=== PATIENT | female | born 1975 | race Caucasian/White ===

== ENCOUNTER 2025-04-06 19:19 | Emergency (ER) | payer BC, SELFPAY ==
[2025-04-06 19:25] VITALS: BP 131/82
[2025-04-06 20:34] VITALS: BP 137/86
[2025-04-06 20:37] VITALS: BMI 23.6
[2025-04-06 21:00] VITALS: BP 121/91
[2025-04-06 22:00] VITALS: BP 109/81
--- NOTE | 2025-04-06 22:11 | ED.GENMED ---
History of Present Illness
General
Chief Complaint: Head Injury
Time Seen by Provider: 04/06/25 21:31
History of Present Illness
History of Present Illness:
FOCUSED PAST MEDICAL HISTORY
- Has had lumpectomies
REVIEW OF OLD RECORDS
- The patient was seen in the Emergency Department 2012 related to vaginal bleeding
Note:
CHIEF COMPLAINT(S)
Head injury with headache following a fall.
HISTORY OF PRESENT ILLNESS
The patient is a 49-year-old female who presented following a fall at approximately 10:00 AM after tripping over her pants and hitting her head on the side against a desk chair. Initially, she reported feeling well but later developed headaches. The
headaches are not constant and tend to come and go, occurring primarily when talking. The patient suspects this may be due to trauma to the yarsani area. There is no persistent headache, neck pain, cut, or abrasion reported. She denies sensation of
being in a fog or feeling off and reports feeling otherwise normal. The patient is alert and interacted appropriately during the encounter.
EXTERNAL RECORDS REVIEWED
The computed tomography (CT) scan conducted in the emergency department showed no signs of brain bleeding. The attending physician reviewed the scan and noted no acute intracranial pathology, pending official reading from the radiologist.
PHYSICAL EXAM
General: Alert, no acute distress.
Skin: Warm, dry. No lacerations or cuts noted.
Head: Normocephalic, atraumatic. Minimal tenderness noted at the yarsani area with no visible external injury. No laceration
Neck: Supple, no tenderness reported. No midline C-spine tenderness
Eye, Ears, Nose, Mouth and Throat: Normal. Oral mucosa moist.
Cardiovascular: Normal peripheral perfusion, no edema.
Respiratory: Respirations are non-labored.
Gastrointestinal: Abdomen nondistended.
Back: Normal range of motion, normal alignment.
Musculoskeletal: Normal range of motion, normal strength.
Neurological: Alert and oriented to person, place, time, and situation. No focal neurological deficit observed.
Psychiatric: Cooperative, appropriate mood and affect.
PLAN
- Await the official report from the radiologist on the CT scan to confirm no acute issues.
- Provided reassurance that there is no sign of catastrophic injuries based on the preliminary CT scan review.
- Advised that once the official reading confirms normal results, the patient can safely rest.
DIFFERENTIAL DIAGNOSIS
The Differential Diagnosis includes, in no particular order and is not limited to:
1. Concussion
2. Minor head injury
3. Cervicogenic headache
4. Tension-type headache
5. Subdural hematoma (ruled out with CT scan)
6. Subarachnoid hemorrhage (ruled out with CT scan)
7. Post-traumatic headache
8. Migraine
9. Sinusitis
10. Vestibular dysfunction
Disposition:
SUMMARY OF ENCOUNTER
The patient, a 49-year-old female, presented to the emergency department following a fall, experiencing headache after hitting her head against a desk chair. A CT scan of the head was performed, which came back negative for any intracranial bleeding
or acute abnormalities. The scan incidentally revealed a small, benign nodule on the thyroid gland. There was no indication for neck imaging at this time and no emergent treatment was required for the nodule. The patient reported no severe or
unusual symptoms beyond the initial headache.
DISPOSITION
Discharge.
ASSESSMENT
Minor head injury with headache post-fall. Incidental finding of a benign thyroid nodule on CT scan.
PLAN
The plan is to discharge the patient with reassurance about the negative CT findings for the head injury. Instructions were given to follow up with her primary care provider regarding the thyroid nodule for possible further evaluation, such as an
ultrasound, if deemed necessary. Patient advised that the thyroid nodule is not an acute concern and should be managed as an outpatient.
INDEPENDENT REVIEW OF LABS AND INTERPRETATION OF TESTS
- My independent interpretation of the CT scan is negative for acute intracranial pathology, with an incidental benign-appearing thyroid nodule.
PATIENT EDUCATION AND COUNSELING
The patient was informed that the CT scan was negative for acute injuries such as brain bleeding and that there is no immediate concern regarding the benign thyroid nodule. Patient was reassured about the safety of discharged and advised that the
headache is not indicative of any life-threatening condition at this point.
FOLLOW-UP INSTRUCTIONS
Patient advised to follow-up with her primary care provider regarding the management of the thyroid nodule. Further imaging or evaluation to be considered based on primary care providers assessment.
MEDICAL DECISION MAKING
- Number and Complexity of Problems Addressed: Differential diagnosis considered includes concussion, minor head injury, post-traumatic headache, tension-type headache. Thyroid nodule detected as benign and incidental finding.
- Data:
*Category 1: External record reviewed, CT scan of head reviewed.
*Category 2: Independent interpretation indicated negative findings for acute pathology and incidental benign thyroid nodule.
- Risk: Consideration of Admission/Observation: Escalation of care including admission/observation was considered given the complexity and risk of the patients presenting complaint, but work-up was reassuring, symptoms were well controlled, and the
patient is reliable for follow-up.
DIAGNOSIS
1. Minor head injury (S09.90XA)
RADIOLOGY
- CAT scan of the brain shows no bleeding
Past History
Past History
ED Past Medical History: None
ED Past Surgical History: None
Social History
Personal:
Phy Exam
Physical Exam
Physical Exam:
See HPI
Course
Orders/Labs/Results
Orders:
Orders
04/06/25 19:28
CT Head W/o Iv Contrast Urgent
Comment:
Reason For Exam: Head strike, +syncope
04/06/25 20:31
Cervical Spine wo Contrast CT [CT Cervical Spine W/o Iv Contr] Urgent
Comment:
Reason For Exam: fall
Vital Signs
Initial and Last Documented VS:
Initial Vital Signs
Temp Pulse Resp BP Pulse Ox
36.7 C 81 18 131/82 100
04/06/25 19:25 04/06/25 19:25 04/06/25 19:25 04/06/25 19:25 04/06/25 19:25
Last Documented Vital Signs
Temp Pulse Resp BP Pulse Ox
36.7 C 81 18 121/91 100
04/06/25 19:25 04/06/25 21:15 04/06/25 20:51 04/06/25 21:00 04/06/25 21:15
*Pulse Oximetry
SaO2: 100
Oxygen Mode of Delivery: Room air
Patient hypoxic: no
*Critical Care Note
Total Time (30-74mins, 75-104mins- exclusive of procedures): Not Applicable
ED Attending Note
-
Portions of this chart may have been created with voice recognition software.� Occasional wrong word or��sound alike� substitutions may have occurred due to the inherent limitations of voice recognition software.
Discharge Plan
Departure
Patient Disposition: Home (Routine Discharge)
Date of Disposition: 04/06/25
Time of Disposition: 22:10
Patient with high blood pressure during this ER visit?: Yes
Discharge Problem:
Head injury
Instructions: Head Injury in Adults (DC), BLOOD PRESSURE
Prescriptions:
No Action
escitalopram oxalate [Lexapro] 20 mg Tablet
20 mg PO DAILY
Zepbound 7.5 mg/0.5 mL Solution
7.5 mg SC QWEEK
Referrals:
Edmar Lee DO [Family Provider, [facility]]
Activity Restrictions/Additional Instructions:
The CAT scan of the brain shows no bleeding. You can sleep tonight safely. However return if worse or other concerns. Incidentally, the CAT scan of the neck (which shows no fractures) did show a small left thyroid lesion (less than 1 cm) that the
radiologist felt was a benign nodule but recommends a nonurgent dedicated thyroid ultrasound that can be arranged for by your primary care doctor if felt needed.
Interventions
Interventions:
*Risk Screen - Suicide Last Done: 04/06/25 19:27
*General Assessment Last Done: 04/06/25 20:53
*Neglect/Abuse Screening Last Done: 04/06/25 19:27
*ED- Fall Risk Assessment Last Done: 04/06/25 20:37
*ED COVID-19 Vaccine History Last Done: 04/06/25 20:37
*ED Influenza Vaccine History Last Done: 04/06/25 20:37
ED- Neurological Assessment Last Done: 04/06/25 20:51
ED-Skin Assessment Last Done: 04/06/25 20:51
Discharge Date and Time
Print Language: [place]
== END 2025-04-06 22:44 | disposition home or self-care (01) ==
LOC: EMR 19:19
PROVIDERS: EMERGENCY PHYSICIAN Emergency Medicine; FAMILY PHYSICIAN Family Medicine
DX: S09.90XA Unspecified injury of head, initial encounter (principal); W01.0XXA Fall on same level from slipping, tripping and stumbling without subsequent striking against object, initial encounter
CPT/HCPCS: 99284; 70450; 72125